=== PATIENT | female | born 1940 | race American Indian/Alaskan Native ===

== ENCOUNTER 2018-11-02 09:53 | Outpatient (CLI) | payer MEDICARE ==
--- NOTE | 2018-11-03 00:13 | Diagnostic Imaging Report ---
EDDIE WANG [facility] [id number] [facility] [address] [place], [place]. [address] Report Submission Date: Nov 02, 2018 5:39:37 PM CDT Patient Study Name: JHON ROY Date: Nov 02, 2018 10:09:53 AM CDT Modality Type: US Gender: F Description: US DUPLEX ARTERIAL LE UNILAT : 40 Institution: [facility] Physician: EDDIE WANG Duplex imaging of the left lower extremity arterial system Clinical history: Diminished pulses. Pressure ulcers on the left heel. Technique: Real-time sonography left lower extremity arterial system is performed in transverse and longitudinal views. Doppler interrogation and color flow imaging are additionally used. Findings: There is mild irregularity of vascular lumen consistent with changes of atherosclerosis. There is no hemodynamically significant stenosis evident on the grayscale images. Biphasic waveforms are seen throughout from the level of the left common femoral artery to the tibial vessels. There is no area of abnormal velocity alteration to suggest hemodynamically significant stenosis. Impression: 1. Biphasic waveform throughout the left lower extremity. This may be indicate more proximal stenosis. 2. No evidence of hemodynamically significant stenosis within the left lower extremity arterial system. Electronically signed on Nov 02, 2018 5:39:37 PM CDT by: Mohan CHICAS
== END 2018-11-02 09:55 ==
LOC: RAD 09:53
PROVIDERS: ATTEND Podiatrist Foot & Ankle Surgery
DX: L89.629 Pressure ulcer of left heel, unspecified stage (principal); I73.9 Peripheral vascular disease, unspecified
CPT/HCPCS: 93926